=== PATIENT | female | born 1985 | race Caucasian/White ===

== ENCOUNTER 2018-03-30 11:06 | Emergency (ER) | payer MEDICAID ==
[~2018-03-30] VITALS: Ht 160 cm; Wt 59.0 kg
[~2018-03-30 11:06] MED LIST: ALBU8.5H5 INH; CITA10TA8 PO; DICY20TA29 PO; FAMO-79 PO; HYDR-3285 PO; LORA0.5T PO; METO10TA2 PO; ONDA4TAB10 PO; TRAM50TA2 PO
[2018-03-30] MEDS ORDERED: FAMOTIDINE 20 MG/2 ML ONE (11:28)
[2018-03-30] MEDS ORDERED: SODIUM CHLORIDE 0.9% 1,000ML IVBOLUS ONE (11:30)
[2018-03-30] MEDS ORDERED: FAMOTIDINE 20 MG/2 ML IVP ONE (11:30)
[2018-03-30 11:44] LABS: BASOPHILS # (AUTO) 0.04 x10^3/uL (0-0.1); BASOPHILS % (AUTO) 1 % (0-1); EOSINOPHILS # (AUTO) 0.03 x10^3/uL (0-0.4); EOSINOPHILS % (AUTO) 1 % (1-7); LYMPHOCYTES % (AUTO) 25 % (22-44); MD NO; MEAN CORPUSCULAR HGB CONC 34.1 g/dL (32.4-35.8); MEAN CORPUSCULAR VOLUME 93.9 fL (80-100); MEAN PLATELET VOLUME 9.9 fL (7.4-10.4); MONOCYTES # (AUTO) 0.24 x10^3/uL (0.2-0.8); MONOCYTES % (AUTO) 5 % (2-9); NEUTROPHILS # (AUTO) 3.37 x10^3/uL (1.8-6.8); NEUTROPHILS % (AUTO) 69 % (42-75); PLATELET COUNT 147 x10^3/uL (130-400); RED BLOOD COUNT 4.26 x10^6/uL (3.82-5.3); RED CELL DISTRIBUTION WIDTH 13.2 % (9.6-15.2)
[2018-03-30 11:55] LABS: ALANINE AMINOTRANSFERASE 17 U/L (12-78); ALBUMIN 3.7 g/dL (3.4-5.0); ANION GAP 6 mmol/L (5-15); CHLORIDE 111 mmol/L (98-107); CREATININE 0.69 mg/dL (0.55-1.02)
[2018-03-30 11:58] LABS: ALKALINE PHOSPHATASE 35 U/L (45-117); BILIRUBIN,TOTAL 0.4 mg/dL (0.2-1.0); TOTAL PROTEIN 6.5 g/dL (6.4-8.2)
[2018-03-30 12:08] LABS: MICROSCOPIC INDICATED
[2018-03-30 12:10] LABS: CULTURE INDICATED? NO
[2018-03-30 12:48] VITALS: BP 102/64
[2018-04-01] MEDS ORDERED: FAMO-79 PO (10:17)
== END 2018-03-30 13:17 | disposition home or self-care (01) ==
LOC: ED 12:56
DX: E86.9 Volume depletion, unspecified (principal); R11.2 Nausea with vomiting, unspecified; R10.84 Generalized abdominal pain; J45.909 Unspecified asthma, uncomplicated; K21.9 Gastro-esophageal reflux disease without esophagitis; F31.9 Bipolar disorder, unspecified; Z90.49 Acquired absence of other specified parts of digestive tract
CPT/HCPCS: 36415; 80053; 81001; 83690; 85025; 96361; 96374; 99284; J7030; S0028

== ENCOUNTER 2018-04-03 09:35 | Emergency (ER) | payer MEDICAID ==
[~2018-04-03] VITALS: Ht 160 cm; Wt 54.5 kg
[2018-04-03] MEDS ORDERED: METO10TA82 PO (09:46)
[2018-04-03] MEDS ORDERED: METOCLOPRAMIDE 5 MG/ML, 2ML ONE (09:55)
[2018-04-03] MEDS ORDERED: FAMOTIDINE 20 MG/2 ML ONE (09:55)
[2018-04-03] MEDS ORDERED: MAALOX/HYOSCYAMINE/LIDOCAINE 45 ML BTL ONE (09:55)
[2018-04-03] MEDS ORDERED: FAMOTIDINE 20 MG/2 ML IVP ONE (10:00)
[2018-04-03] MEDS ORDERED: METOCLOPRAMIDE 5 MG/ML, 2ML IVPush ONE (10:00)
[2018-04-03] MEDS ORDERED: MAALOX/HYOSCYAMINE/LIDOCAINE 45 ML BTL PO ONE (10:00)
[2018-04-03] MEDS ORDERED: SODIUM CHLORIDE FLUSH 10ML SYR IVF ONE (10:00)
[2018-04-03 10:19] LABS: BASOPHILS # (AUTO) 0.02 x10^3/uL (0-0.1); BASOPHILS % (AUTO) 0 % (0-1); EOSINOPHILS # (AUTO) 0.01 x10^3/uL (0-0.4); EOSINOPHILS % (AUTO) 0 % (1-7); LYMPHOCYTES # (AUTO) 1.17 x10^3/uL (1-3.4); LYMPHOCYTES % (AUTO) 21 % (22-44); MD NO; MEAN CORPUSCULAR HEMOGLOBIN 31.3 pg (27.0-34.8); MEAN CORPUSCULAR HGB CONC 33.7 g/dL (32.4-35.8); MEAN CORPUSCULAR VOLUME 92.7 fL (80-100); MEAN PLATELET VOLUME 10.4 fL (7.4-10.4); MONOCYTES # (AUTO) 0.23 x10^3/uL (0.2-0.8); MONOCYTES % (AUTO) 4 % (2-9); NEUTROPHILS # (AUTO) 4.03 x10^3/uL (1.8-6.8); NEUTROPHILS % (AUTO) 74 % (42-75); PLATELET COUNT 133 x10^3/uL (130-400); RED BLOOD COUNT 4.43 x10^6/uL (3.82-5.3); RED CELL DISTRIBUTION WIDTH 13.1 % (9.6-15.2)
[2018-04-03 10:31] LABS: ALANINE AMINOTRANSFERASE 22 U/L (12-78); ALBUMIN 3.9 g/dL (3.4-5.0); ANION GAP 12 mmol/L (5-15); CALCIUM 8.8 mg/dL (8.5-10.1); CHLORIDE 108 mmol/L (98-107); CREATININE 0.86 mg/dL (0.55-1.02)
[2018-04-03 10:36] LABS: ALKALINE PHOSPHATASE 46 U/L (45-117); BILIRUBIN,TOTAL 0.6 mg/dL (0.2-1.0); TOTAL PROTEIN 6.8 g/dL (6.4-8.2)
[2018-04-03 10:58] VITALS: BP 137/68
[2018-04-03] MEDS ORDERED: SODIUM CHLORIDE 0.9% 1,000ML IVBOLUS ONE (11:00)
[2018-04-03] MEDS ORDERED: SODIUM CHLORIDE 0.9%, 500ML IVBOLUS ONE (11:00)
[2018-04-03] MEDS ORDERED: POTASSIUM CHLORIDE 20 MEQ TAB.ER.PRT PO ONE (11:00)
[2018-04-03 11:08] LABS: MICROSCOPIC NOT IND
[2018-04-03 11:12] LABS: CULTURE INDICATED? NO
[2018-04-03] MEDS ORDERED: DICYCLOMINE 10 MG/ML, 2ML ONE (11:19)
[2018-04-03] MEDS ORDERED: POTASSIUM CHLORIDE 20 MEQ TAB.ER.PRT ONE (11:20)
[2018-04-03] MEDS ORDERED: HALOPERIDOL 5 MG/ML IM ONE (11:30)
[2018-04-03] MEDS ORDERED: PROCHLORPERAZINE 5 MG/ML, 2ML IVPush ONE (11:30)
[2018-04-03] MEDS ORDERED: DICYCLOMINE 10 MG/ML, 2ML IM ONE (11:30)
[2018-04-03] MEDS ORDERED: DIPHENHYDRAMINE 50 MG/ML, 1ML IVPush ONE (11:30)
[2018-04-03] MEDS ORDERED: PROCHLORPERAZINE 5 MG/ML, 2ML ONE (11:32)
[2018-04-03] MEDS ORDERED: HALOPERIDOL 5 MG/ML ONE (11:32)
[2018-04-03] MEDS ORDERED: DIPHENHYDRAMINE 50 MG/ML, 1ML ONE (11:32)
== END 2018-04-03 11:48 | disposition home or self-care (01) ==
LOC: ED 11:42
DX: R10.84 Generalized abdominal pain (principal); R11.2 Nausea with vomiting, unspecified; Z90.49 Acquired absence of other specified parts of digestive tract
CPT/HCPCS: 36415; 74021; 80053; 81003; 83690; 83735; 84703; 85025; 93005; 96361; 96372; 96374; 96375; 99285; J0500; J0780; J1200; J1630; J2765; J7040; S0028

== ENCOUNTER 2018-08-03 10:19 | Emergency (ER) | payer MEDICAID ==
[~2018-08-03] VITALS: Ht 160 cm; Wt 56.8 kg
[~2018-08-03 10:19] MED LIST changes: +METO10TA82 PO
[2018-08-03] MEDS ORDERED: DICY10AM2 PO (10:31)
--- NOTE | 2018-08-03 10:31 | NUR ---
PT BROUGHT IN BY EMS WITH C/O "05/15 ALL OVER ABDOMINAL PAIN, I THINK IT IS MY IBS FLARING UP FROM A SIP OF COFFEE THIS MORNING." NADN. PT VOMITS ONCE AT BEDSIDE SMALL AMOUNT OF YELLOW BILE. PT IS PINK, WARM, DRY, AFEBRILE, HAS UNLABORED RESPIRATIONS EQUAL BILATERALLY. 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 NO OTHER NEEDS AT THIS TIME. ALL SAFETY MEASURES IN PLACE. EMESIS BAGS PROVIDED. PT CONNECTED TO NIBP AND CONTINOUS PULSE OX.
[2018-08-03] MEDS ORDERED: METOCLOPRAMIDE 5 MG/ML, 2ML ONE (10:54)
[2018-08-03] MEDS ORDERED: DIPHENHYDRAMINE 50 MG/ML, 1ML ONE (10:54)
[2018-08-03] MEDS ORDERED: DICYCLOMINE 10 MG/ML, 2ML ONE (10:54)
[2018-08-03] MEDS ORDERED: DICYCLOMINE 10 MG/ML, 2ML IM ONE (11:00)
[2018-08-03] MEDS ORDERED: METOCLOPRAMIDE 5 MG/ML, 2ML IVPush ONE (11:00)
[2018-08-03] MEDS ORDERED: DIPHENHYDRAMINE 50 MG/ML, 1ML IVPush ONE (11:00)
[2018-08-03] MEDS ORDERED: SODIUM CHLORIDE 0.9% 1,000ML IVBOLUS ONE (11:00)
[2018-08-03 11:07] LABS: BASOPHILS # (AUTO) 0.01 x10^3/uL (0-0.1); BASOPHILS % (AUTO) 0 % (0-1); EOSINOPHILS # (AUTO) 0.01 x10^3/uL (0-0.4); EOSINOPHILS % (AUTO) 0 % (1-7); LYMPHOCYTES % (AUTO) 14 % (22-44); MD NO; MEAN CORPUSCULAR HEMOGLOBIN 31.6 pg (27.0-34.8); MEAN CORPUSCULAR HGB CONC 33.6 g/dL (32.4-35.8); MEAN PLATELET VOLUME 9.2 fL (7.4-10.4); MONOCYTES # (AUTO) 0.14 x10^3/uL (0.2-0.8); MONOCYTES % (AUTO) 2 % (2-9); NEUTROPHILS # (AUTO) 5.55 x10^3/uL (1.8-6.8); NEUTROPHILS % (AUTO) 84 % (42-75); PLATELET COUNT 159 x10^3/uL (130-400); RED BLOOD COUNT 4.28 x10^6/uL (3.82-5.3)
[2018-08-03 11:20] LABS: ALANINE AMINOTRANSFERASE 18 U/L (12-78); ALBUMIN 4.2 g/dL (3.4-5.0); ANION GAP 10 mmol/L (5-15); CALCIUM 8.8 mg/dL (8.5-10.1); CHLORIDE 109 mmol/L (98-107)
[2018-08-03 11:23] LABS: ALKALINE PHOSPHATASE 48 U/L (45-117); BILIRUBIN,TOTAL 0.3 mg/dL (0.2-1.0); CREATININE 0.83 mg/dL (0.55-1.02); TOTAL PROTEIN 7.5 g/dL (6.4-8.2)
[2018-08-03 12:09] LABS: MICROSCOPIC INDICATED
[2018-08-03 12:25] LABS: CULTURE INDICATED? YES
[2018-08-03] MEDS ORDERED: HALOPERIDOL 5 MG/ML ONE (12:28)
[2018-08-03] MEDS ORDERED: HALOPERIDOL 5 MG/ML IM PRN (12:30)
--- NOTE | 2018-08-03 12:37 | NUR ---
PT CONTINUES TO VOMIT. PROVIDED NEW MEDICATION PER EMAR. PROVIDED PT NADJA HUGGER BLANKET WARMER FOR COMFORT MEASURES. PROVIDED PT NEW EMESIS BAGS. NADN. NO OTHER NEEDS EXPRESSED AT THIS TIME. APPROXIMATELY 150 ML OF THE 1000 ML BOLUS OF NS REMAINS TO INFUSE PER EMAR.
--- NOTE | 2018-08-03 13:22 | NUR ---
CARE FOR RN BREAK PROVIDED: PT LAYING ON GURNEY WITH NADJA PAWS WARMER IN PLACE. PT STATES "FEELING A LITTLE BETTER" NO VOMITING AT THIS TIME. RA SAT 99%. NO NEEDS EXPRESSED AT THIS TIME.
[2018-08-03 14:08] VITALS: BP 107/58
--- NOTE | 2018-08-03 14:10 | NUR ---
Patient given discharge instructions and they have confirmed that they understand the instructions. Patient ambulatory with steady gait. PT LEFT WITH ALL PERSONAL BELONGINGS, DISCHARGE PAPERWORK, AND PRESCRIPTIONS.
== END 2018-08-03 14:11 | disposition home or self-care (01) ==
LOC: ED 13:21
DX: R10.13 Epigastric pain (principal); R11.2 Nausea with vomiting, unspecified; F31.9 Bipolar disorder, unspecified; K21.9 Gastro-esophageal reflux disease without esophagitis; J45.909 Unspecified asthma, uncomplicated; F41.1 Generalized anxiety disorder
CPT/HCPCS: 36415; 80053; 81001; 83690; 85025; 87086; 96372; 96374; 96375; 99283; J0500; J1200; J1630; J2765

== ENCOUNTER 2018-11-14 07:13 | Emergency (ER) | payer MEDICAID ==
[~2018-11-14] VITALS: Ht 160 cm; Wt 58.0 kg
[~2018-11-14 07:13] MED LIST changes: +DICY10AM2 PO
--- NOTE | 2018-11-14 07:30 | NUR ---
PT BIBA FOR C/O GENERALIZED ABD PAIN RADIATING TO BILATERAL CHEST WITH N/V/D STARTING LAST NIGHT. REPORT RECEIVED FROM EMS. PT ATTACHED TO ALL MONITORS, EKG OBTAINED BY EDT. PT EXAMINED BY SHANE MONTILLA, PT TO HAVE LABS, UA, AND MEDS. PT UPDATED WITH POC.
[2018-11-14] MEDS ORDERED: HALOPERIDOL 5 MG TABLET PO STA (07:32)
[2018-11-14] MEDS ORDERED: DIPHENHYDRAMINE 50 MG/ML, 1ML ONE (07:34)
[2018-11-14] MEDS ORDERED: HALOPERIDOL 5 MG/ML ONE (07:34)
--- NOTE | 2018-11-14 07:45 | NUR ---
PT INSTRUCTED TO PROVIDE CLEAN CATCH UA, LAB AT BEDSIDE FOR DRAW.
--- NOTE | 2018-11-14 07:49 | NUR ---
PT UP TO VOID, GAIT STEADY
[2018-11-14 07:57] LABS: BASOPHILS % (AUTO) 0 % (0-1); EOSINOPHILS % (AUTO) 0 % (1-7); LYMPHOCYTES # (AUTO) 0.89 x10^3/uL (1-3.4); LYMPHOCYTES % (AUTO) 12 % (22-44); MD NO; MEAN CORPUSCULAR HEMOGLOBIN 32.1 pg (27.0-34.8); MEAN CORPUSCULAR HGB CONC 34.1 g/dL (32.4-35.8); MEAN PLATELET VOLUME 9.6 fL (7.4-10.4); MONOCYTES # (AUTO) 0.05 x10^3/uL (0.2-0.8); MONOCYTES % (AUTO) 1 % (2-9); NEUTROPHILS # (AUTO) 6.36 x10^3/uL (1.8-6.8); NEUTROPHILS % (AUTO) 87 % (42-75); PLATELET COUNT 187 x10^3/uL (130-400); RED BLOOD COUNT 4.61 x10^6/uL (3.82-5.3); RED CELL DISTRIBUTION WIDTH 13.4 % (9.6-15.2)
[2018-11-14] MEDS ORDERED: HALOPERIDOL 5 MG/ML IM PRN (08:00)
[2018-11-14] MEDS ORDERED: DIPHENHYDRAMINE 50 MG/ML, 1ML IM ONE (08:00)
--- NOTE | 2018-11-14 08:04 | NUR ---
PT BACK IN BED, MEDICATED PER EMAR, TOLERATED WELL. ALL MONITORS REAPPLIED. PT IS IN SINUS BRADYCARDIA, RATE 50'S, NO ECTOPY. WARM BLANKET PROVIDED. PT MEDICATED PER EMAR, TOLERATED WELL. URINE SENT TO LAB.
[2018-11-14 08:08] LABS: ALBUMIN 4.6 g/dL (3.4-5.0); ANION GAP 12 mmol/L (5-15); CALCIUM 9.5 mg/dL (8.5-10.1); CHLORIDE 106 mmol/L (98-107)
[2018-11-14 08:10] LABS: MICROSCOPIC NOT IND
[2018-11-14 08:11] LABS: ALANINE AMINOTRANSFERASE 19 U/L (12-78); ALKALINE PHOSPHATASE 49 U/L (45-117); CREATININE 0.96 mg/dL (0.55-1.02); TOTAL PROTEIN 7.8 g/dL (6.4-8.2)
[2018-11-14 08:13] LABS: CULTURE INDICATED? NO
--- NOTE | 2018-11-14 08:30 | NUR ---
PT SLEEPING ON GURNEY, RESPS EVEN AND UNLABORED. ALL RESULTS BACK, CHART UP FOR RECHECK. AWAITING MD AND DISPO.
[2018-11-14 09:17] VITALS: BP 97/52
--- NOTE | 2018-11-14 09:23 | NUR ---
PT A&O, RESPS EVEN AND UNLABORED. PT REPORTS SYMPTOMS HAVE RESOLVED. NO N/V. PT GIVEN DC INSTRUCTIONS AND SCRIPT. PT EDUCATED REGARDING DC RX FOR REGLAN. PT INSTRUCTED NOT TO DRIVE. PT STATES IS ARRIVING TO DRIVE HER HOME. PT AMBULATORY WITH STEADY GAIT TO DC, NADN AT DC.
== END 2018-11-14 09:24 | disposition home or self-care (01) ==
LOC: ED 07:53
DX: R10.84 Generalized abdominal pain (principal); R11.0 Nausea; K21.9 Gastro-esophageal reflux disease without esophagitis
CPT/HCPCS: 36415; 80053; 81003; 85025; 93005; 96372; 99284; J1200; J1630

== ENCOUNTER 2019-12-11 16:20 | Emergency (ER) | payer MEDICAID ==
[~2019-12-11] VITALS: Ht 160 cm; Wt 64.0 kg
--- NOTE | 2019-12-11 16:28 | NUR ---
HEATHER. REPORT RECEIVED FROM EMS. PT C/O SEVERE ABD PAIN WITH N/V AFTER COLONOSCOPY AND ENDOSCOPY DONE AT 9AM TODAY. HX OF OVARIAN AND CERVICAL CA. NO CHEMO USED. PT'S AOX4. RESPS EVEN AND UNLABORED. DENIES ANY URINARY SX. BP/SPO2 MONITORS IN PLACE. CALL LIGHT WITHIN REACH.
[2019-12-11] MEDS ORDERED: HYDROmorphone 2 MG/ML, 1ML ONE (16:50)
[2019-12-11] MEDS ORDERED: ONDANSETRON 2MG/ML, 2ML ONE ×2 (16:50→18:56)
[2019-12-11] MEDS ORDERED: FAMOTIDINE 20 MG/2 ML ONE (16:50)
[2019-12-11] MEDS ORDERED: ONDANSETRON 2MG/ML, 2ML IVPush ONE ×2 (17:00→19:00)
[2019-12-11] MEDS ORDERED: SODIUM CHLORIDE FLUSH 10ML SYR IVF ONE (17:00)
[2019-12-11] MEDS ORDERED: FAMOTIDINE 20 MG/2 ML IVPush ONE (17:00)
[2019-12-11] MEDS ORDERED: HYDROmorphone 2 MG/ML, 1ML IVPush ONE (17:00)
--- NOTE | 2019-12-11 17:05 | NUR ---
PT MEDICATED PER EMAR. PT TOLERATED WELL.
--- NOTE | 2019-12-11 17:19 | NUR ---
PT BACK TO ROOM FROM XRAY AT THIS TIME.
--- NOTE | 2019-12-11 17:49 | NUR ---
ok'd to give some water. pt provided some water per request.
--- NOTE | 2019-12-11 18:38 | NUR ---
pt c/o pain and nausea again. edmd notified.
--- NOTE | 2019-12-11 18:51 | NUR ---
report given to mina zuleta.
--- NOTE | 2019-12-11 18:54 | NUR ---
REPORT RECEIVED FROM LORETTA ALFARO. PT RESTING ON GURCARLOS. ERP IN ROOM AT THIS TIME, PT UPDATED ON POC. CALL LIGHT WITHIN REACH, MONITORING IN PLACE.
[2019-12-11] MEDS ORDERED: KETOROLAC 30 MG/1 ML ONE (18:56)
[2019-12-11 18:59] VITALS: BP 118/79
[2019-12-11] MEDS ORDERED: KETOROLAC 30 MG/1 ML IVPush ONE (19:00)
== END 2019-12-11 19:22 | disposition home or self-care (01) ==
LOC: ED 18:40
DX: R10.84 Generalized abdominal pain (principal); R11.2 Nausea with vomiting, unspecified; J45.909 Unspecified asthma, uncomplicated; K21.9 Gastro-esophageal reflux disease without esophagitis; Z90.49 Acquired absence of other specified parts of digestive tract; Z90.710 Acquired absence of both cervix and uterus
CPT/HCPCS: 74021; 96374; 96375; 96376; 99285; J1170; J1885; J2405; J3490